=== PATIENT | female | born 1965 | race Caucasian/White ===

== ENCOUNTER 2017-11-04 01:49 | Emergency (ER) | payer BC, OTHER ==
[~2017-11-04] VITALS: Ht 162.6 cm; Wt 94.9 kg
[2017-11-04] MEDS ORDERED: ONDANSETRON ODT 4 MG PO ONE (03:00)
[2017-11-04] MEDS ORDERED: LIDOCAINE-MPF 1%, 5ML INFIL ONE (03:00)
[2017-11-04] MEDS ORDERED: MORPHINE SULFATE 4 MG/ML, 1ML IVPush ONE (03:00)
[2017-11-04] MEDS ORDERED: SODIUM CHLORIDE FLUSH 10ML SYR IVF ONE (03:00)
[2017-11-04] MEDS ORDERED: SODIUM CHLORIDE 0.9% 1,000ML IVBOLUS ONE (03:00)
[2017-11-04] MEDS ORDERED: MORPHINE SULFATE 4 MG/ML, 1ML ONE (03:10)
[2017-11-04] MEDS ORDERED: ONDANSETRON 2MG/ML, 2ML ONE (03:10)
[2017-11-04] MEDS ORDERED: LIDOCAINE-MPF 2% ,5ML ONE (03:11)
[2017-11-04 03:13] LABS: BASOPHILS # (AUTO) 0.01 x10^3/uL (0-0.1); BASOPHILS % (AUTO) 0 % (0-1); EOSINOPHILS # (AUTO) 0.05 x10^3/uL (0-0.4); EOSINOPHILS % (AUTO) 1 % (1-7); LYMPHOCYTES # (AUTO) 1.41 x10^3/uL (1-3.4); LYMPHOCYTES % (AUTO) 13 % (22-44); MD NO; MEAN CORPUSCULAR HEMOGLOBIN 28.8 pg (27.0-34.8); MEAN CORPUSCULAR HGB CONC 33.4 g/dL (32.4-35.8); MEAN CORPUSCULAR VOLUME 86.3 fL (80-100); MEAN PLATELET VOLUME 8.9 fL (7.4-10.4); MONOCYTES # (AUTO) 0.51 x10^3/uL (0.2-0.8); MONOCYTES % (AUTO) 5 % (2-9); NEUTROPHILS # (AUTO) 8.63 x10^3/uL (1.8-6.8); NEUTROPHILS % (AUTO) 81 % (42-75); PLATELET COUNT 374 x10^3/uL (130-400)
[2017-11-04] MEDS ORDERED: LIDOCAINE-MPF 1%, 2ML ONE (03:13)
[2017-11-04 03:20] LABS: ALBUMIN 3.7 g/dL (3.4-5.0); ANION GAP 6 mmol/L (5-15); CALCIUM 8.7 mg/dL (8.5-10.1); CHLORIDE 105 mmol/L (98-107); CREATININE 0.77 mg/dL (0.55-1.02)
[2017-11-04 04:24] VITALS: BP 138/63
== END 2017-11-04 05:04 | disposition home or self-care (01) ==
LOC: ED 03:06
DX: N76.4 Abscess of vulva (principal); N93.9 Abnormal uterine and vaginal bleeding, unspecified
CPT/HCPCS: 36415; 56405; 80048; 82040; 85025; 93005; 96374; 99285; J7030; Q0162

== ENCOUNTER 2019-06-10 19:52 | Observation (INO) | payer BC, OTHER ==
[~2019-06-10] VITALS: Ht 162.6 cm; Wt 93.7 kg
--- NOTE | 2019-06-10 20:20 | NUR ---
THIS IS A 53 YO FEMALE COMING IN FOR SUDDEN CHEST PAIN STARTING AROUND 1900 WHILE DRIVING FROM [facility]. PATIENT STATES "IT STARTED WITH A HEADACHE, THEN I FELT A FLUTTERING SENSATION IN MY CHEST WITH SOME DISCOMFORT IN MY STOMACH, AND IT EFFIE GOES DOWN MY LEFT ARM". PATIENT HAS HX OF HTN, T2DM. DENIES SOB, DENIES N/V, NO HEADACHE AT THIS TIME. PATIENT PLACED ON HAND UMBRELLA TIPPER, NSR NOTED, CONTINUOUS SPO2 AT 97%, CYCLE BP Q1HR. CALL LIGHT IN REACH, VSS, NAD, DENIES NEEDS AT THIS TIME.
[2019-06-10] MEDS ORDERED: LOSA50TA14 PO (20:23)
[2019-06-10] MEDS ORDERED: AMLO10TA8 PO (20:23)
[2019-06-10] MEDS ORDERED: GLIP10TA13 PO (20:24)
[2019-06-10] MEDS ORDERED: ATOR-2 PO (20:24)
[2019-06-10] MEDS ORDERED: MONT10TA9 PO (20:25)
[2019-06-10] MEDS ORDERED: METO25TA91 PO (20:25)
[2019-06-10] MEDS ORDERED: NITROGLYCERIN SINGLE TAB 0.4 MG SL ONE ×3 (20:30→21:24)
[2019-06-10] MEDS ORDERED: ASPIRIN 81 MG TABLET CHEW PO ONE (20:30)
[2019-06-10] MEDS ORDERED: SODIUM CHLORIDE FLUSH 10ML SYR IVF ONE (20:30)
--- NOTE | 2019-06-10 20:30 | NUR ---
patient medicated per emar, tolerated well.
[2019-06-10] MEDS ORDERED: ASPIRIN 81 MG TABLET CHEW ONE (20:31)
[2019-06-10] MEDS: NITROGLYCERIN SINGLE TAB 0.4 MG SL PRN ×2 (20:33→21:26)
[2019-06-10 20:40] LABS: BASOPHILS # (AUTO) 0.08 x10^3/uL (0-0.1); BASOPHILS % (AUTO) 1 % (0-1); EOSINOPHILS # (AUTO) 0.15 x10^3/uL (0-0.4); EOSINOPHILS % (AUTO) 2 % (1-7); LYMPHOCYTES # (AUTO) 2.33 x10^3/uL (1-3.4); LYMPHOCYTES % (AUTO) 27 % (22-44); MD NO; MEAN CORPUSCULAR HEMOGLOBIN 29.5 pg (27.0-34.8); MEAN CORPUSCULAR HGB CONC 33.5 g/dL (32.4-35.8); MEAN PLATELET VOLUME 9.3 fL (7.4-10.4); MONOCYTES % (AUTO) 5 % (2-9); NEUTROPHILS # (AUTO) 5.74 x10^3/uL (1.8-6.8); NEUTROPHILS % (AUTO) 66 % (42-75); PLATELET COUNT 252 x10^3/uL (130-400); RED BLOOD COUNT 5.13 x10^6/uL (3.82-5.3); RED CELL DISTRIBUTION WIDTH 12.1 % (9.6-15.2)
[2019-06-10 20:51] LABS: ALANINE AMINOTRANSFERASE 28 U/L (12-78); ALBUMIN 3.6 g/dL (3.4-5.0); ANION GAP 6 mmol/L (5-15); CHLORIDE 105 mmol/L (98-107); CREATININE 0.87 mg/dL (0.55-1.02)
[2019-06-10 20:56] LABS: ALKALINE PHOSPHATASE 138 U/L (45-117); BILIRUBIN,TOTAL 0.5 mg/dL (0.2-1.0); TOTAL PROTEIN 7.4 g/dL (6.4-8.2); TROPONIN I < 0.015 ng/mL (0.000-0.045)
--- NOTE | 2019-06-10 21:04 | NUR ---
PIV STARTED, PATIENT TOLERATED WELL. PATIENT RESTING ON GURNEY, RESPIRATIONS EVEN AND UNLABORED. CALL LIGHT IN REACH, VSS.
--- NOTE | 2019-06-10 21:26 | NUR ---
PATIENT GIVEN SECOND DOSE OF NITRO, TOELRATED WELL. STATES CHEST PAIN IS AT A 5/10 AT THIS TIME. FAMILY IN ROOM, CALL LIGHT IN REACH, DENIES NEEDS AT THIS TIME.
[2019-06-10] MEDS ORDERED: DOCUSATE 100 MG CAPSULE PO PRN (22:00)
[2019-06-10] MEDS ORDERED: morphine SULFATE 10 MG/ML, 1ML IVPush PRN (22:00)
[2019-06-10] MEDS ORDERED: NITROGLYCERIN 0.4 MG BOTTLE (25 TABS) SL PRN (22:00)
[2019-06-10] MEDS ORDERED: BISACODYL 10 MG SUPP PR PRN (22:00)
[2019-06-10] MEDS ORDERED: POLYETHYLENE GLYCOL 17 GM PACKET PO PRN (22:00)
[2019-06-10] MEDS ORDERED: hydrALAzine 20 MG/ML, 1ML IVPush PRN (22:00)
--- NOTE | 2019-06-10 22:07 | NUR ---
REPORT GIVEN TO DANIELA QUINONEZ. PLAN OF CARE DISCUSSED. Addendum: 06/10/19 at 2207 by GARCIA ADMITTING RN AWARE OF BLOOD SUGAR
--- NOTE | 2019-06-10 22:15 | NUR ---
CALL PLACED TO PHARMACY TO GET INSULIN PEN PRIOR TO PATIENT GOING UPSTAIRS
[2019-06-10 22:19] LABS: FREE T4 (FREE THYROXINE) 1.02 ng/dL (0.76-1.46)
[2019-06-10] MEDS ORDERED: PLEASE ENTER HEIGHT AND WEIGHT MC SCH (22:30)
[2019-06-10] MEDS: INSULIN LISPRO 100 UNITS/ML, PEN SQ-INSULIN SCH (22:35)
--- NOTE | 2019-06-10 22:36 | NUR ---
PATIENT GIVEN 8 UNITS OF INSULIN PRIOR TO GOING UPSTAIRS TO ADMITTING FLOOR.
--- NOTE | 2019-06-10 22:41 | NUR ---
DANIELA QUINONEZ NOTIFIED PATIENT RECEIVED INSULIN PRIOR TO TRANSPORT
[2019-06-10] MEDS: SODIUM CHLORIDE 0.9% 1,000 ML IV SCH (23:01)
[2019-06-10 23:06] VITALS: BP 146/73
[2019-06-10] MEDS: ACETAMINOPHEN 325 MG TABLET PO PRN (23:26)
[2019-06-10] MEDS: HEPARIN 5,000 UNITS/ML, 1ML SQ SCH (23:26)
[2019-06-11 00:16] LABS: TROPONIN I < 0.015 ng/mL (0.000-0.045)
[2019-06-11 01:15] VITALS: BP 148/73
[2019-06-11 03:00] LABS: BASOPHILS # (AUTO) 0.04 x10^3/uL (0-0.1); BASOPHILS % (AUTO) 1 % (0-1); EOSINOPHILS # (AUTO) 0.17 x10^3/uL (0-0.4); EOSINOPHILS % (AUTO) 2 % (1-7); LYMPHOCYTES # (AUTO) 2.52 x10^3/uL (1-3.4); LYMPHOCYTES % (AUTO) 33 % (22-44); MD NO; MEAN CORPUSCULAR HEMOGLOBIN 29.5 pg (27.0-34.8); MEAN CORPUSCULAR HGB CONC 33.4 g/dL (32.4-35.8); MEAN CORPUSCULAR VOLUME 88.3 fL (80-100); MEAN PLATELET VOLUME 9.4 fL (7.4-10.4); MONOCYTES # (AUTO) 0.44 x10^3/uL (0.2-0.8); MONOCYTES % (AUTO) 6 % (2-9); NEUTROPHILS # (AUTO) 4.56 x10^3/uL (1.8-6.8); NEUTROPHILS % (AUTO) 59 % (42-75); PLATELET COUNT 249 x10^3/uL (130-400); RED BLOOD COUNT 4.46 x10^6/uL (3.82-5.3); RED CELL DISTRIBUTION WIDTH 11.9 % (9.6-15.2)
[2019-06-11 03:10] LABS: ALANINE AMINOTRANSFERASE 24 U/L (12-78); ALBUMIN 3.1 g/dL (3.4-5.0); ANION GAP 7 mmol/L (5-15); CALCIUM 8.3 mg/dL (8.5-10.1); CHLORIDE 110 mmol/L (98-107); CHOLESTEROL, TOTAL 136 mg/dL (140-239); CREATININE 0.74 mg/dL (0.55-1.02)
[2019-06-11 03:13] LABS: ALKALINE PHOSPHATASE 113 U/L (45-117); BILIRUBIN,TOTAL 0.3 mg/dL (0.2-1.0); CHOL/HDL RATIO 2.6; HDL CHOL % 38 % (28-40); HDL CHOLESTEROL (DIRECT) 52 mg/dL (40-60); LDL CHOLESTEROL,CALCULATED 42 mg/dL (54-169); LDL/HDL RATIO 0.8 (0.5-3.0); TOTAL PROTEIN 6.6 g/dL (6.4-8.2); TRIGLYCERIDES 212 mg/dL (50-200); VLDL CHOLESTEROL 42 mg/dL (0-25)
[2019-06-11 03:15] LABS: TROPONIN I < 0.015 ng/mL (0.000-0.045)
[2019-06-11] MEDS: ACETAMINOPHEN 325 MG TABLET PO PRN ×2 (05:18→13:17)
[2019-06-11] MEDS: HEPARIN 5,000 UNITS/ML, 1ML SQ SCH ×2 (05:19→13:19)
[2019-06-11] MEDS ORDERED: ASPIRIN 325 MG TABLET EC PO SCH (06:00)
[2019-06-11 06:58] VITALS: BP 115/69
[2019-06-11] MEDS: INSULIN LISPRO 100 UNITS/ML, PEN SQ-INSULIN SCH ×3 (08:34→16:45)
[2019-06-11] MEDS ORDERED: MONTELUKAST 10 MG TABLET PO SCH (09:00)
[2019-06-11] MEDS ORDERED: METOPROLOL SUCCINATE 25 MG TAB.ER.24H PO SCH (09:00)
[2019-06-11] MEDS ORDERED: AMLODIPINE 10 MG TAB PO SCH (09:00)
[2019-06-11] MEDS ORDERED: LOSARTAN 50MG TABLET PO SCH (09:00)
[2019-06-11] MEDS ORDERED: REGADENOSON 0.4 MG/5 ML SYRINGE ONE (10:11)
[2019-06-11] MEDS ORDERED: TRAZ-137 PO (12:59)
[2019-06-11 13:08] VITALS: BP 161/82
[2019-06-11] MEDS: SODIUM CHLORIDE 0.9% 1,000 ML IV SCH (13:18)
[2019-06-11] MEDS ORDERED: LOSARTAN 25MG TABLET ONE (16:38)
[2019-06-11 16:40] VITALS: BP 153/83
[2019-06-11] MEDS ORDERED: ATORVASTATIN 20 MG TABLET PO SCH (21:00)
[2019-06-12] MEDS ORDERED: LOSARTAN 25MG TABLET PO SCH (09:00)
== END 2019-06-11 19:48 | disposition home or self-care (01) ==
LOC: ED 21:11 → INTOOBSV 21:43 → EDIP 21:43 → 5SO 22:57
PROVIDERS: ADMIT Internal Medicine; ATTEND Internal Medicine
DX: R07.9 Chest pain, unspecified (principal); I10 Essential (primary) hypertension; E78.5 Hyperlipidemia, unspecified; J45.909 Unspecified asthma, uncomplicated; E11.65 Type 2 diabetes mellitus with hyperglycemia
CPT/HCPCS: 36415; 71045; 78452; 80053; 80061; 82962; 83036; 83735; 83880; 84439; 84443; 84484; 85025; 93005; 93017; 93306; 93356; 96360; 96361; 96372; 99284; A9502; G0378; J1644; J1815; J2785; J7030

== ENCOUNTER → 2019-07-04 | Outpatient (CLI) | payer BC ==
[~2019-07-04] MED LIST: AMLO10TA8 PO; ATOR-2 PO; GLIP10TA13 PO; LOSA50TA14 PO; METO25TA91 PO; MONT10TA9 PO; OMNIPAQUE 350 MG/ML, 100ML BOTTLE ONE; TRAZ-137 PO
== END | disposition home or self-care (01) ==
LOC: RAD 13:06
PROVIDERS: ATTEND Family Medicine
DX: D25.9 Leiomyoma of uterus, unspecified (principal); N85.2 Hypertrophy of uterus
CPT/HCPCS: 74177; Q9967

== ENCOUNTER → 2019-07-09 | Outpatient (CLI) | payer BC ==
[~2019-07-09] MED LIST changes: +MONT10TA11 PO; -MONT10TA9 PO; -OMNIPAQUE 350 MG/ML, 100ML BOTTLE ONE; -TRAZ-137 PO; +TRAZ-175 PO
== END | disposition home or self-care (01) ==
LOC: CFH 07:44
PROVIDERS: ATTEND Family Medicine
DX: N64.89 Other specified disorders of breast (principal)
CPT/HCPCS: 76642; 77065

== ENCOUNTER → 2019-10-11 | Outpatient (CLI) | payer BC ==
[~2019-10-11] MED LIST changes: +ATOR20TA86 PO; +CHLO25TA PO; +ERGO500018 PO; +FREM225S INJ; +GLIP10TA24 PO; +INSU100I34 SC; +LOSA100T14 PO; +METO-282 PO; +ONDA4TAB13 PO; +PANT40TA5 PO; +POTA20TA89 PO; +PROC5TAB2 PO; +SEMA1PEN INJ; +SERT-237 PO; +SUMA100T4 PO
[2019-10-11 14:35] LABS: ALANINE AMINOTRANSFERASE 41 U/L (12-78); ANION GAP 9 mmol/L (5-15); CALCIUM 9.3 mg/dL (8.5-10.1); CHLORIDE 103 mmol/L (98-107); CREATININE 1.01 mg/dL (0.55-1.02)
[2019-10-11 14:37] LABS: ALKALINE PHOSPHATASE 105 U/L (45-117); BILIRUBIN,TOTAL 0.5 mg/dL (0.2-1.0); TOTAL PROTEIN 8.1 g/dL (6.4-8.2)
== END | disposition home or self-care (01) ==
LOC: STAR 13:08
PROVIDERS: ATTEND Obstetrics & Gynecology Female Pelvic Medicine and Reconstructive Surgery
DX: Z01.818 Encounter for other preprocedural examination (principal); D25.0 Submucous leiomyoma of uterus; R10.2 Pelvic and perineal pain
CPT/HCPCS: 36415; 80053; 93005

== ENCOUNTER 2019-10-15 09:24 | Day surgery (SDC) | payer BC ==
[~2019-10-15] VITALS: Ht 161.3 cm; Wt 89.2 kg
[~2019-10-15 09:24] MED LIST changes: +BUPIVACAINE/PF-EPI 0.25% 1:200K ONE
[2019-10-15] MEDS ORDERED: CHLORHEXIDINE 15 ML UDC MM STA (09:47)
[2019-10-15] MEDS ORDERED: LACTATED RINGERS 1,000 ML IV ONE (09:47)
[2019-10-15] MEDS ORDERED: CHLORHEXIDINE 15 ML UDC ONE (09:53)
[2019-10-15] MEDS ORDERED: LIDOCAINE-MPF 2%, 2ML ONE (09:53)
[2019-10-15] MEDS ORDERED: LIDOCAINE-MPF 1%, 2ML INFIL ONE (10:00)
[2019-10-15 10:15] VITALS: BP 130/83
[2019-10-15 10:23] LABS: HCG UR SG 1.013 (1.003-1.030)
[2019-10-15] MEDS ORDERED: FENTANYL PF 100 MCG/2ML IV PRN (11:00)
[2019-10-15] MEDS ORDERED: KETOROLAC 30 MG/1 ML IV PRN (11:00)
[2019-10-15] MEDS ORDERED: MEPERIDINE/PF 25MG/0.5ML IVPush PRN (11:00)
[2019-10-15] MEDS ORDERED: MIDAZOLAM 1 MG/ML, 2ML IV PRN (11:00)
[2019-10-15] MEDS ORDERED: EPHEDRINE 50 MG/ML, 1ML IM PRN (11:00)
[2019-10-15] MEDS ORDERED: ONDANSETRON 2MG/ML, 2ML IVPush PRN (11:00)
[2019-10-15] MEDS ORDERED: OXYcodone 5 MG/5 ML ORAL.SOL UDC PO PRN (11:00)
[2019-10-15] MEDS ORDERED: METOPROLOL 1 MG/ML, 5ML IV PRN (11:00)
[2019-10-15] MEDS ORDERED: ALBUTEROL/IPRATROPIUM 2.5MG/0.5MG, 3 ML NPPB PRN (11:00)
[2019-10-15] MEDS ORDERED: HYDROcodone/APAP 7.5-325MG/15ML UDC PO PRN (11:00)
[2019-10-15] MEDS ORDERED: LABETALOL 5MG/ML, 20ML IV PRN (11:00)
[2019-10-15] MEDS ORDERED: hydrALAzine 20 MG/ML, 1ML IV PRN (11:00)
[2019-10-15] MEDS ORDERED: DIPHENHYDRAMINE 50 MG/ML, 1ML IVPush PRN (11:00)
[2019-10-15] MEDS ORDERED: EPHEDRINE 50 MG/ML, 1ML IVPush PRN (11:00)
[2019-10-15] MEDS ORDERED: METOCLOPRAMIDE 5 MG/ML, 2ML IVPush PRN (11:00)
[2019-10-15] MEDS ORDERED: HYDROmorphone 1 MG/ML, 1ML INJ IVPush PRN (11:00)
[2019-10-15] MEDS ORDERED: DEXAMETHASONE 4 MG/ML, 1ML ONE (11:41)
[2019-10-15] MEDS ORDERED: MIDAZOLAM 1 MG/ML, 2ML ONE (11:41)
[2019-10-15] MEDS ORDERED: PROPOFOL 10 MG/ML, 20ML ONE (11:41)
[2019-10-15] MEDS ORDERED: FENTANYL PF 250 MCG/5ML ONE (11:41)
[2019-10-15] MEDS ORDERED: ROCURONIUM 10MG/ML,5ML ONE (11:41)
[2019-10-15] MEDS ORDERED: GLYCOPYRROLATE 0.2MG/1ML, 5ML ONE (11:41)
[2019-10-15] MEDS ORDERED: GENTAMICIN 80 MG/2 ML ONE ×2 (11:47→13:20)
[2019-10-15] MEDS ORDERED: VANCOMYCIN 500 MG ONE ×2 (11:47→13:20)
[2019-10-15] MEDS ORDERED: LIDOCAINE-MPF 2% ,5ML ONE (12:44)
[2019-10-15] MEDS ORDERED: CEFAZOLIN 1,000 MG ONE (12:44)
[2019-10-15] MEDS ORDERED: ONDANSETRON 2MG/ML, 2ML ONE (12:44)
[2019-10-15] MEDS ORDERED: FLUORESCEIN SODIUM 500 MG/5 ML ONE (12:44)
[2019-10-15] MEDS ORDERED: FUROSEMIDE 20 MG/2 ML ONE (14:32)
[2019-10-15] MEDS ORDERED: METOCLOPRAMIDE 5 MG/ML, 2ML ONE (14:57)
[2019-10-15] MEDS ORDERED: HYDROcodone/APAP 7.5-325MG/15ML UDC ONE (15:21)
[2019-10-15] MEDS ORDERED: KETOROLAC 30 MG/1 ML ONE (15:21)
[2019-10-15] MEDS ORDERED: KETOROLAC 30 MG/1 ML IVPush ONE (15:30)
== END 2019-10-15 17:55 | disposition home or self-care (01) ==
LOC: OUT 09:24
PROVIDERS: ATTEND Obstetrics & Gynecology Female Pelvic Medicine and Reconstructive Surgery
DX: N92.1 Excessive and frequent menstruation with irregular cycle (principal); N94.6 Dysmenorrhea, unspecified; N81.2 Incomplete uterovaginal prolapse; D25.1 Intramural leiomyoma of uterus; N81.89 Other female genital prolapse; N39.46 Mixed incontinence; R10.2 Pelvic and perineal pain; E66.01 Morbid (severe) obesity due to excess calories; I10 Essential (primary) hypertension; E11.9 Type 2 diabetes mellitus without complications; K21.9 Gastro-esophageal reflux disease without esophagitis; J45.909 Unspecified asthma, uncomplicated; G43.909 Migraine, unspecified, not intractable, without status migrainosus; Z79.84 Long term (current) use of oral hypoglycemic drugs; Z79.899 Other long term (current) drug therapy; Z88.5 Allergy status to narcotic agent; Z88.8 Allergy status to other drugs, medicaments and biological substances; Z91.013 Allergy to seafood; Z91.018 Allergy to other foods; Z98.890 Other specified postprocedural states
CPT/HCPCS: 57265; 57288; 58554; 81025; 82962; 88307; C1771; J0690; J1100; J1580; J1885; J1940; J2250; J2405; J2704; J2765; J3010; J3370; J7120

== ENCOUNTER → 2020-01-08 | Outpatient (CLI) | payer BC ==
[~2020-01-08] MED LIST changes: -BUPIVACAINE/PF-EPI 0.25% 1:200K ONE
== END | disposition home or self-care (01) ==
LOC: CFH 09:20
PROVIDERS: ATTEND Family Medicine
DX: R92.8 Other abnormal and inconclusive findings on diagnostic imaging of breast (principal)
CPT/HCPCS: 77065; G0279

== ENCOUNTER → 2020-10-17 | Outpatient (CLI) | payer BC ==
[~2020-10-17] MED LIST changes: +AMLO-211 PO; -AMLO10TA8 PO; -MONT10TA11 PO; +MONT10TA17 PO; -PANT40TA5 PO; +PANT40TA6 PO
== END | disposition home or self-care (01) ==
LOC: CFH 15:53
PROVIDERS: ATTEND Internal Medicine Cardiovascular Disease
DX: I11.9 Hypertensive heart disease without heart failure (principal)
CPT/HCPCS: 93306